=== PATIENT | male | born 1960 | race Two or more races ===

== ENCOUNTER 2016-07-07 20:29 | Emergency (ER) | payer OTHER ==
[~2016-07-07] VITALS: Ht 167.6 cm; Wt 72.6 kg
[2016-07-07 20:51] VITALS: BP 142/92
[2016-07-07] MEDS ORDERED: HYDROcodone-ACET 5/325MG TAB PO ONE (23:15)
[2016-07-07] MEDS ORDERED: cefTRIAXone SOD 1,000 MG VL IM ONE (23:15)
[2016-07-08] MEDS ORDERED: BACITRACIN-POLYMYXIN B TOPICAL OINT UD TOP ONE (00:15)
[2016-07-08] MEDS ORDERED: TETANUS-DIPTH-ACEL PERTUSSIS 0.5ML SYRG IM ONE (00:30)
== END 2016-07-08 00:53 | disposition home or self-care (01) ==
LOC: ER 20:38
DX: S61.215A Laceration without foreign body of left ring finger without damage to nail, initial encounter (principal); S61.213A Laceration without foreign body of left middle finger without damage to nail, initial encounter; Z23 Encounter for immunization; W26.0XXA Contact with knife, initial encounter; Y93.89 Activity, other specified; Y99.8 Other external cause status; Y92.89 Other specified places as the place of occurrence of the external cause
CPT/HCPCS: 12001; 73130; 90471; 90715; 96372; 99284; J0696